=== PATIENT | male | born 1940 | race Caucasian/White ===

== ENCOUNTER → 2017-01-17 | Day surgery (SDC) | payer OTHER ==
[2017-01-04 08:35] VITALS: BMI 45.0
--- NOTE | 2017-01-04 09:10 | PAT Medication Instructions ---
Service Date Jan 04, 2017. Current Home Medication List Acetaminophen (Tylenol), 500 MG PO PRN Allopurinol (Zyloprim), 300 MG PO QPM Amlodipine (Norvasc), 5 MG PO QAM Apixaban (Eliquis), 5 MG PO BID Aspirin (Aspir-81), 1 TAB PO QAM Carvedilol (Coreg), 6.25 MG PO BID Cholecalciferol (Vitamin D3), 1 TAB PO QAM Fish Oil ([place]-3), 1 CAP PO BID Hctz/Losartan (Hyzaar 25MG/100MG), 1 TAB PO QAM Lisinopril (Prinivil), 10 MG PO QAM Magnesium Oxide (Mag-Ox), 400 MG PO QAM Multivitamin (Multivitamin), 1 TAB PO QAM Pravastatin (Pravachol ), 10 MG PO HS Tamsulosin Hcl (Flomax), 0.4 MG PO HS [Calcium], 600 MG PO BID Medication Instructions For Your Scheduled Surgery - Instructions to be given by Cardiology/Surgeon: Apixaban (Eliquis), 5 MG PO BID Aspirin (Aspir-81), 1 TAB PO QAM - Hold the following medications 2 weeks prior to surgery: Fish Oil ([place]-3), 1 CAP PO BID - Hold the following medications the morning of surgery: Lisinopril (Prinivil), 10 MG PO QAM Multivitamin (Multivitamin), 1 TAB PO QAM Cholecalciferol (Vitamin D3), 1 TAB PO QAM Hctz/Losartan (Hyzaar 25MG/100MG), 1 TAB PO QAM Magnesium Oxide (Mag-Ox), 400 MG PO QAM [Calcium], 600 MG PO BID - Take the following medications the morning of surgery with a sip of water OTHERWISE NOTHING TO EAT OR DRINK AFTER MIDNIGHT: Acetaminophen (Tylenol), 500 MG PO PRN (may take if needed up to 4 hours prior to surgery) Carvedilol (Coreg), 6.25 MG PO BID Amlodipine (Norvasc), 5 MG PO QAM - Take the following medications as scheduled the night before surgery: Acetaminophen (Tylenol), 500 MG PO PRN Pravastatin (Pravachol ), 10 MG PO HS Tamsulosin Hcl (Flomax), 0.4 MG PO HS Allopurinol (Zyloprim), 300 MG PO QPM Carvedilol (Coreg), 6.25 MG PO BID [Calcium], 600 MG PO BID If you have any questions please call us at [phone] or [phone] or [phone]
--- NOTE | 2017-01-04 09:59 | DIAGNOSTIC IMAGING REPORT ---
CHEST PREADMISSION(PA/LAT) CLINICAL HISTORY: Preoperative chest COMPARISON STUDY: No previous studies for comparison. FINDINGS: The heart is borderline enlarged. There is aortic tortuosity/ectasia. There is no failure. There is no focal pulmonary consolidation. There are no pleural effusions. There are moderately advanced degenerative changes present within the[ dorsal spine. 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 IMPRESSION: No active disease in the chest. Electronically signed by: Fabrizio Lama M.D. 01/04/2017 9:58 AM Dictated Date/Time: 01/04/2017 9:58 AM
[2017-01-04 10:42] LABS: BASO % 0.3 %; BASO ABS # 0.02 K/uL (0-0.2); COMPLETE YES; EOS % 2.4 %; HEMATOCRIT 41.6 % (42-52); IG% 0.2 %; LYMPH % 29.3 %; LYMPH ABS # 1.69 K/uL (1.2-3.4); MEAN CORPUSCULAR HEMOGLOBIN 32.9 pg (25-34); MEAN CORPUSCULAR HGB CONC 33.9 g/dl (32-36); MEAN PLATELET VOLUME 10.8 fL (7.4-10.4); NEUT % 53.8 %; PLATELET COUNT 126 K/uL (130-400); RED BLOOD COUNT 4.29 M/uL (4.7-6.1); WHITE BLOOD COUNT 5.77 K/uL (4.8-10.8)
[2017-01-04 10:44] LABS: URINE APPEARANCE CLEAR (CLEAR); URINE BILIRUBIN NEG (NEG); URINE COLOR YELLOW; URINE NITRITE NEG (NEG); URINE PH 7.5 (4.5-7.5); URINE SPECIFIC GRAVITY 1.016 (1.000-1.030); UROBILINOGEN NEG (NEG)
[2017-01-04 10:46] LABS: MANUAL MICROSCOPIC REQUIRED? NO; REVIEW REQ? NO
[2017-01-04 10:47] LABS: BUN/CREATININE RATIO 20.5 (10-20); CALCIUM 10.1 mg/dl (8.5-10.1); CREATININE 1.5 mg/dl (0.60-1.40); POTASSIUM 4.2 mmol/L (3.5-5.1)
[2017-01-04 10:48] LABS: SULFASALICYLIC ACID POS (NEG)
[~2017-01-17] VITALS: Ht 170.2 cm; Wt 131.7 kg
[~2017-01-17] MED LIST: ACET-1256 PO; ACETAMINOPHEN 325 MG TAB PO PRN; ALLO300T2 PO; AMLO-110 PO; APIX1TAB3 PO; ASPI-232 PO; ATROPINE SULFATE 0.1 MG/ML 5ML SYR IV PRN; CALC-51 PO; CARV6.252 PO; CHOL1000 PO; CIPR-255 PO; CIPROFLOXACIN / D5W 400 MG IV SCH; EpHEDrine SULFATE INJ 50 MG/ML AMP IV PRN; FENTANYL CITRATE INJ 50 MCG/1 ML 2 ML VIAL IV PRN; FENTANYL CITRATE INJ 50 MCG/1 ML 2 ML VIAL ONE; HYDROCODONE/ACETAMOPHEN 5/325MG TAB PO PRN; HYZ/10015 PO; LACTATED RINGER'S 1000ML 1,000 ML IV SCH; LIDOCAINE HCL 2% 2 ML VIAL (20MG/ML) ONE; LISI10TA PO; MAGN400T6 PO; MIDAZOLAM HCL 1 MG/ML 2ML VIAL ONE; MULT-506 PO; OMEG10007 PO; ONDANSETRON INJ 2 MG/ML 2 ML VIAL IV PRN; PHEN95TA14 PO; PHENAZOPYRIDINE HCL 200 MG TAB PO STA; PRAV20TA PO; PROPOFOL IV EMULSION 10 MG/ML 20 ML VIAL IV ONE; SODIUM CHLORIDE 0.9% 1000ML 1,000 ML IV SCH; TAMS0.4C38 PO
[2017-01-17 08:43] VITALS: BP 124/69; PULSE 54; TEMP 36.9; O2SAT 99; Ht 170.2 cm; Wt 131.7 kg
--- NOTE | 2017-01-17 09:29 | History & Physical Bridge Note ---
H&P Re-Evaluation Bridge Note: I have examined the patient, reviewed the History & Physical and in the interval since the performance of the History & Physical I have noted the following changes of clinical significance: No changes noted
--- NOTE | 2017-01-17 10:05 | [facility] Operative Report ---
Operative Report Operative Date Jan 17, 2017. Pre-Operative Diagnosis BPH Post-Operative Diagnosis BPH Procedure(s) Performed Cystoscopy; Urolift Surgeon Jonny Clerk General Office Surgeon(s) none Estimated Blood Loss 0cc Findings Lateral lobe hypertrophy Specimens None per surgeon Drains none Anesthesia MAC Complication(s) None Disposition Recovery Room / PACU (stable) Indications Lower urinary tract symptoms Description of Procedure Patient was identified in the preoperative holding area, appropriate informed consents were reviewed and completed and the patient was transported to the operating suite. Upon arrival he received appropriate preoperative antibiotics in the form of ciprofloxacin. Adequate sedation was achieved, and he was placed in dorsal lithotomy position where he was sterilely prepped and draped in standard fashion. I begin the case by passing a visual obturator with 0 lens. Spectrum of the urethra revealed a healthy-appearing mucosa. Prostate was inspected, and he was noted to have lateral lobe hypertrophy and a modestly high bladder neck. Full inspection of the bladder was carried out. There were no tumors, stones, or other abnormalities. I then exchanged visual obturator for the first uro-lift device. The first suture was deployed on the right side of the prostate approximately 1 cm in from the bladder neck. A mere image suture was then deployed on the left. A third suture was placed adjacent to the verumontanum on the right. A fourth suture was placed in a mirror image of this location on the left. There was excellent hemostasis. I reinspected the bladder and prostate and noted an excellent anterior channel. I attest to the content of the Intraoperative Record and any orders documented therein. Any exceptions are noted below.
--- NOTE | 2017-01-17 10:08 | Discharge Instructions ---
Discharge Instructions Date of Service Jan 17, 2017. Admission Reason for Admission: Benign Prostatic Hyperplasia Discharge Discharge Diagnosis / Problem: BPH Discharge Goals Goal(s): Decrease discomfort, Improve function, Increase independence, Improve disease control, Prevent Disease Progression Activity Recommendations Activity Limitations: resume your previous activity Lifting Limitations: none Exercise/Sports Limitations: none May Resume Sexual Activity: when tolerated Shower/Bathe: no limitations Driving or Machine Use: resume 1 day after discharge . Instructions / Follow-Up Instructions / Follow-Up You do not need to come to Dr. Fuller's office tomorrow morning. We will contact you to arrange a follow-up in approximately 2 weeks. Discharge Diet Recommended Diet: Regular Diet Procedures Procedures Performed: Cystoscopy; Urolift Pending Studies Studies pending at discharge: no Medical Emergencies . Who to Call and When: Medical Emergencies: If at any time you feel your situation is an emergency, please call 911 immediately. . Non-Emergent Contact Non-Emergency issues call your: Urologist Call Non-Emergent contact if: you have a fever, temperature is above 101.5, your pain is not controlled, your pain is worsening . . "Provider Documentation" section prepared by Broderick Tompkins. . VTE Core Measure Inpt VTE Proph given/why not?: Other Anticoagulation (please resume your Eliquis tomorrow - please stay well hydrated to limit blood in your urine ( having red/pink urine is normal for the first week after this procedure))
--- NOTE | 2017-01-17 10:32 | Anesthesiology Progress Note ---
Anesthesia Post Op Note Date & Time Jan 17, 2017 at 10:32 Vital Signs Pain Intensity: 0 Vital Signs Past 12 Hours Date Time Temp Pulse Resp B/P (MAP) Pulse Ox O2 Delivery O2 Flow Rate FiO2 01/17/17 10:25 36.6 64 12 170/77 96 Room Air 01/17/17 10:15 64 18 176/86 96 Room Air 01/17/17 10:06 36.2 54 16 135/69 100 Oxymask 10 01/17/17 08:43 36.9 54 20 124/69 (87) 99 Room Air Notes Mental Status: alert / awake / arousable, participated in evaluation Pt Amnestic to Procedure: Yes Nausea / Vomiting: adequately controlled Pain: adequately controlled Airway Patency, RR, SpO2: stable & adequate BP & HR: stable & adequate Hydration State: stable & adequate Anesthetic Complications: no major complications apparent
[2017-01-17 10:35] VITALS: BP 154/72; PULSE 51; TEMP 36.6; O2SAT 96
[2017-01-17 11:05] VITALS: BP 144/66; PULSE 51; TEMP 36.6; O2SAT 96
== END | disposition home or self-care (01) ==
LOC: C.ACU 08:11
PROVIDERS: ATTEND Urology
DX: N40.1 Benign prostatic hyperplasia with lower urinary tract symptoms (principal); N13.8 Other obstructive and reflux uropathy; G47.33 Obstructive sleep apnea (adult) (pediatric); E66.9 Obesity, unspecified; I48.91 Unspecified atrial fibrillation; F17.200 Nicotine dependence, unspecified, uncomplicated; M10.9 Gout, unspecified; E78.5 Hyperlipidemia, unspecified; I10 Essential (primary) hypertension; Z85.828 Personal history of other malignant neoplasm of skin; Z90.49 Acquired absence of other specified parts of digestive tract; Z82.49 Family history of ischemic heart disease and other diseases of the circulatory system